=== PATIENT | female | born 1965 | race Asian ===

== ENCOUNTER 2016-09-03 09:51 | Outpatient (CLI) | payer BC | END 2016-09-03 11:30 | disposition home or self-care (01) | LOC: MAMMO 09:51 | DX: Z12.31 Encounter for screening mammogram for malignant neoplasm of breast (principal) | CPT/HCPCS: G0202-TC ==

== ENCOUNTER 2017-09-06 12:50 | Outpatient (CLI) | payer BC | END 2017-09-06 19:16 | disposition home or self-care (01) | LOC: MAMMO 12:50 | DX: Z12.31 Encounter for screening mammogram for malignant neoplasm of breast (principal) ==

== ENCOUNTER 2018-10-01 08:41 | Outpatient (CLI) | payer BC | END 2018-10-01 22:15 | disposition home or self-care (01) | LOC: MAMMO 08:41 | DX: Z12.31 Encounter for screening mammogram for malignant neoplasm of breast (principal) ==

== ENCOUNTER 2019-02-12 18:31 | Emergency (ER) | payer BC ==
[~2019-02-12] VITALS: Ht 167.6 cm; Wt 65.8 kg
[2019-02-12 19:35] VITALS: BP 140/92; TEMP 97.8
== END 2019-02-12 19:35 | disposition home or self-care (01) ==
LOC: ED 18:31
DX: S46.911A Strain of unspecified muscle, fascia and tendon at shoulder and upper arm level, right arm, initial encounter (principal); S39.012A Strain of muscle, fascia and tendon of lower back, initial encounter; M62.838 Other muscle spasm; V49.40XA Driver injured in collision with unspecified motor vehicles in traffic accident, initial encounter; Y92.410 Unspecified street and highway as the place of occurrence of the external cause
CPT/HCPCS: 99283

== ENCOUNTER 2019-02-28 08:15 | Outpatient (CLI) | payer OTHER, BC | END 2019-02-28 20:48 | disposition home or self-care (01) | LOC: RAD 08:15 | DX: M25.511 Pain in right shoulder (principal); S16.1XXA Strain of muscle, fascia and tendon at neck level, initial encounter ==

== ENCOUNTER 2019-05-01 14:41 | Outpatient (CLI) | payer OTHER, BC | END 2019-05-01 19:13 | disposition home or self-care (01) | LOC: RAD 14:41 | DX: M54.17 Radiculopathy, lumbosacral region (principal) ==

== ENCOUNTER 2019-11-27 09:53 | Outpatient (CLI) | payer BC ==
[2019-11-27 10:12] LABS: PLATELET COUNT 258 K/uL (152-353)
[2019-11-27 10:36] LABS: POTASSIUM 4.3 mmol/L (3.6-5.2)
== END 2019-11-27 23:22 | disposition home or self-care (01) ==
LOC: LABW 09:53
PROVIDERS: Nurse Practitioner Family
DX: L65.9 Nonscarring hair loss, unspecified (principal); Z79.899 Other long term (current) drug therapy
CPT/HCPCS: 36415; 80053; 82306; 82626; 82728; 83540; 83550; 84270; 84402; 84403; 84439; 84443; 85027; 86376

== ENCOUNTER 2020-05-25 13:13 | Outpatient (CLI) | payer BC, OTHER | END 2020-05-25 22:06 | disposition home or self-care (01) | LOC: INF 13:13 | PROVIDERS: ATTEND Internal Medicine | DX: Z23 Encounter for immunization (principal) | CPT/HCPCS: 96372 ==

== ENCOUNTER 2020-06-03 08:03 | Outpatient (CLI) | payer BC | END 2020-06-03 19:48 | disposition home or self-care (01) | LOC: MAMMO 08:03 | PROVIDERS: ATTEND Obstetrics & Gynecology | DX: Z12.31 Encounter for screening mammogram for malignant neoplasm of breast (principal) ==

== ENCOUNTER 2020-06-16 11:06 | Outpatient (CLI) | payer BC, OTHER | END 2020-06-16 21:13 | disposition home or self-care (01) | LOC: INF 11:06 | PROVIDERS: ATTEND Internal Medicine | DX: Z23 Encounter for immunization (principal) | CPT/HCPCS: 96372 ==

== ENCOUNTER 2020-06-16 14:16 | Outpatient (CLI) | payer BC | END 2020-06-16 22:01 | disposition home or self-care (01) | LOC: MAMMO 14:16 | PROVIDERS: ATTEND Obstetrics & Gynecology | DX: R92.8 Other abnormal and inconclusive findings on diagnostic imaging of breast (principal) ==

== ENCOUNTER 2021-06-01 05:29 | Outpatient (CLI) | payer OTHER ==
[2021-06-01 05:52] LABS: PLATELET COUNT 258 K/uL (152-353)
[2021-06-01 06:16] LABS: POTASSIUM 4.2 mmol/L (3.6-5.2)
== END 2021-06-01 20:02 | disposition home or self-care (01) ==
LOC: LABW 05:29
PROVIDERS: ATTEND Internal Medicine
DX: E04.1 Nontoxic single thyroid nodule (principal)
CPT/HCPCS: 36415; 80053; 84439; 84443; 85027

== ENCOUNTER 2021-06-15 15:34 | Outpatient (CLI) | payer OTHER | END 2021-06-15 21:30 | disposition home or self-care (01) | LOC: US 15:34 | PROVIDERS: ATTEND Internal Medicine | DX: E04.1 Nontoxic single thyroid nodule (principal); Z12.31 Encounter for screening mammogram for malignant neoplasm of breast ==

== ENCOUNTER 2021-09-20 15:35 | Outpatient (CLI) | payer OTHER | END 2021-09-20 19:22 | disposition home or self-care (01) | LOC: LABW 15:35 | PROVIDERS: ATTEND Internal Medicine | DX: E03.9 Hypothyroidism, unspecified (principal) | CPT/HCPCS: 36415; 84439; 84443 ==

== ENCOUNTER 2021-10-24 16:27 | Outpatient (CLI) | payer OTHER | END 2021-10-24 19:04 | disposition home or self-care (01) | LOC: RAD 16:27 | PROVIDERS: ATTEND Internal Medicine | DX: M25.562 Pain in left knee (principal) ==

== ENCOUNTER 2022-08-03 08:59 | Outpatient (CLI) | payer OTHER | END 2022-08-03 18:57 | disposition home or self-care (01) | LOC: MAMMO 08:59 | PROVIDERS: ATTEND Nurse Practitioner Family | DX: Z12.31 Encounter for screening mammogram for malignant neoplasm of breast (principal) ==